=== PATIENT | female | born 1950 | race Caucasian/White ===

== ENCOUNTER → 2017-01-12 | Outpatient (CLI) | payer MEDICARE ==
[~2017-01-12] MED LIST: AMOX875T PO; METO-93 PO
== END | disposition home or self-care (01) ==
LOC: STAR 11:53
PROVIDERS: ATTEND Internal Medicine
DX: R91.8 Other nonspecific abnormal finding of lung field (principal)
CPT/HCPCS: 93005

== ENCOUNTER 2017-01-22 07:09 | Day surgery (SDC) | payer MEDICARE ==
[~2017-01-22] VITALS: Ht 175.3 cm; Wt 63.0 kg
[2017-01-22] MEDS ORDERED: LACTATED RINGERS 1,000 ML IV SCH (07:27)
[2017-01-22 07:46] VITALS: BP 182/84
== END 2017-01-22 09:40 | disposition home or self-care (01) ==
LOC: OUT 07:09
PROVIDERS: ATTEND Internal Medicine
DX: Z02.9 Encounter for administrative examinations, unspecified (principal)

== ENCOUNTER → 2017-01-22 | Outpatient (CLI) | payer MEDICARE | END | disposition home or self-care (01) | LOC: RAD 08:14 | PROVIDERS: ATTEND Internal Medicine | DX: R91.8 Other nonspecific abnormal finding of lung field (principal) | CPT/HCPCS: 71250 ==